=== PATIENT | male | born 1965 | race Caucasian/White ===

== ENCOUNTER 2019-07-03 14:55 | Inpatient (IN) ==
[2019-07-03] MEDS ORDERED: TYLENOL PO PRN (16:29)
[2019-07-03] MEDS ORDERED: NS 500 ML IV ONE (16:35)
[2019-07-03] MEDS ORDERED: BENADRYL PO ONE (16:35)
[2019-07-03] MEDS ORDERED: SODIUM CHLORIDE 0.9% INJ SCH (16:45)
[2019-07-03 17:54] LABS: RETIC% 1.55 % (0.8-2.1); RETIC-HE 15.1 PG (28.2-36.6)
[2019-07-03 18:19] LABS: IRON SATURATION 2 %; TIBC 402 ug/dL
[2019-07-03 18:20] LABS: TOTAL IRON 8 ug/dL (53-167); UNBOUND IRON 394 ug/dL (112-346)
--- NOTE | 2019-07-03 19:12 | Diag Imaging Result Doc PS360 ---
EXAM: CT ABD/PELVIS W/PO AND IV CON 07/03/2019 HISTORY: anemia/abd mass TECHNIQUE: This exam was performed using automated exposure control, adjustment of mA or kV according to patient size, and/or use of iterative reconstruction technique. COMMENT: There are no previous studies available for comparison. There are minimal platelike opacities present in the posterior costophrenic sulci. There are multiple low density lesions present in the liver. Spleen in the left hepatic lobe and the dome of the liver where there is a mass measuring 3.2 cm. The gallbladder is nondistended and there are no apparent stones. The aorta is not distended. The mesenteric and renal arteries are patent. The appendix is normal in appearance. The adrenal glands are not enlarged. The spleen is not enlarged. The pancreas is unremarkable. There is a mass in the transverse colon measuring 10.4 x 6.8 x 5.1 cm. There are enlarged mesenteric nodes. The mass one of which measures almost 15 mm in diameter. There are also prominent ileocolic nodes. Pelvis: There is diverticulosis in the sigmoid colon without evidence of diverticulitis. The urinary bladder is not distended. There is no evidence of free fluid. There is ankylosis of the sacroiliac joints. There is a hemangioma on the right side of the sacrum. There is ankylosis of multiple lumbar facet joints and the entire visible lumbar and thoracic spine. There is an apparent hemangioma in the T11 vertebral body on the right. 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 Electronically signed by Jt Campbell 07/03/2019 7:09 PM
[2019-07-03 19:46] LABS: HEMATOCRIT 25.6 % (42.0-52.0); HEMOGLOBIN 6.4 g/dL (14.0-18.0)
[2019-07-03] MEDS: PROTONIX IV SCH (20:10)
--- NOTE | 2019-07-03 20:21 | HISTORY AND PHYSICAL ---
CHIEF COMPLAINT: Abdominal pain. HISTORY OF PRESENT ILLNESS: The patient is a 53-year-old white male followed in my medical practice and also followed by Dr. Kan Vega. He comes in with left periumbilical abdominal pain after he ate barbecue. This began 5 days ago, and he has improved since that time. This seems to be peristaltic in nature as it comes and goes with meals. He has had occasional nausea and very rare vomiting over the past few weeks and notes fatigue over the past 3 to 4 weeks. He denies melena, hematochezia. Has daily regular bowel movements. No diarrhea. Last colonoscopy reviewed from February [address] Vega revealing some mild intestinal ulcerations, which were biopsied and were negative. He also had diverticulosis. No other abnormalities. Patient also was seen in [address] Vega's staff and note made that they were planning EGD at that time due to dysphagia and dyspepsia. It is unclear if he had that particular procedure at that time. MEDICATIONS: His medications prior to admission are none. ALLERGIES: Penicillin. PAST MEDICAL HISTORY: 1. Ankylosing spondylitis followed in the recent past by Dr. Guillen. He is now currently off medications. He was home sulfasalazine per Dr. Guillen in the past. 2. Rheumatoid arthritis, followed by Dr. Guillen. 3. Diverticulosis diagnosed 2015. 4. Sleep apnea. PAST SURGICAL HISTORY: 1. [place] teeth removal. 2. Tonsillectomy in 2002. FAMILY HISTORY: Notable for diabetes mellitus in paternal grandfather, maternal grandfather, maternal grandmother, and mother. Unknown cancer is prominent in the family. No strokes or MIs in the family. Hypertension in his father. Mother has been diagnosed with lung cancer recently. SOCIAL HISTORY: Patient lives in [place]. He is single. Rare minimal local smoker remotely. No alcohol. He works at [employer] in [employer]. REVIEW OF SYSTEMS: Notable for mild weight loss of about 10 pounds in the past 1-1/2 years by chart record. Otherwise negative except as above. PHYSICAL EXAMINATION: VITAL SIGNS: Weight 245, height 6 feet 1 inch, blood pressure 128/62, pulse 94, BMI 31. GENERAL: Mildly obese white male in no acute distress. SKIN: Warm and dry. No rashes. HEENT: NC/AT. MARYA. EOMI. Sclerae anicteric. No redness. Tongue in the midline. NECK: There is prominent neck stiffness with forward protrusion of the neck. CARDIOVASCULAR: RRR without murmur. LUNGS: CTA. ABDOMEN: Protuberant. We were able to relax his muscles of the abdomen by doubling up a pillow and put it under his neck, which is quite stiff, and he has a rigid spine noted as well. Abdomen exam reveals possible palpable mass of left periumbilical area. No organomegaly. No rebound or guarding. GENITOURINARY/RECTAL: Deferred. EXTREMITIES: No calf tenderness, cords or edema. NEUROLOGIC: Cranial nerves 2-12 are intact. No focal deficits. LAB DATA: Was obtained and shows sodium 136, potassium 4, chloride 101, CO2 of 24, BUN 15, creatinine 1, glucose 91, calcium 9.2, total bilirubin 0.27, total protein 6.5, albumin 3.7, alkaline phosphatase 30, SGOT 22, SGPT 10, amylase 37, lipase 68. White count 9.36, hemoglobin 6.4, hematocrit 25.8, MCV 59, platelets 1065, neutrophils 71.8, lymphocytes 13.6. KUB reveals nonobstructive bowel gas pattern. No free air. No significant constipation. No acute disease. ASSESSMENT: 1. Profound anemia, microcytic, rule out gastrointestinal blood loss anemia. 2. Palpable left abdominal mass. 3. Ankylosing spondylitis. 4. Rheumatoid arthritis. 5. History of diverticulosis. 6. Obstructive sleep apnea. PLAN: We will admit the patient to the hospital to step-down unit on telemetry. We will type and crossmatch 2 units and transfuse 2 units over 4 hours each unit. Premedicate and will get CT abdomen and pelvis with oral and IV contrast. Check iron studies, B12, folic acid level, LDH, haptoglobin, start him on IV Protonix, give him normal saline while keeping him on clear liquid diet currently with n.p.o. after midnight. cc: Skip Zuniga MD
[2019-07-03] MEDS: D5 1/2 NS + KCL 20 MEQ 1,000 ML IV SCH (23:43)
[2019-07-04 08:01] LABS: AGAP 12; BUN 11 mg/dL (8-22); CALCIUM 8.6 mg/dL (8.8-10.2); CHLORIDE 102 mmol/L (98-107); COSMO 270; ESTIMATED GFR > 60; GLUCOSE 106 mg/dL (70-104); POTASSIUM 4.2 mmol/L (3.5-5.1); SODIUM 135 mmol/L (136-145); TCO2 21 mmol/L (25-35)
[2019-07-04 08:47] LABS: BASO# 0.04 X1000 (0.0-0.2); BASO% 0.5 % (0.0-0.8); EOS# 0.25 X1000 (0.0-0.7); EOS% 3.1 % (0.0-10.0); HEMATOCRIT 28.6 % (42.0-52.0); HEMOGLOBIN 7.9 g/dL (14.0-18.0); IMM GRAN# 0.03 X1000 (0.0-0.04); IMM GRAN% 0.4 % (0.0-0.5); LYMPH# 1.05 X1000 (1.2-3.4); LYMPH% 13.1 % (20.5-51.1); MCH 17.7 PG (27-31); MCHC 27.6 g/dL (33-37); MCV 64.1 FL (81-99); MONO% 8.8 % (1.7-9.3); NEUT# 5.92 X1000 (1.4-6.5); NEUT% 74.1 % (42.2-75.2); PLT 846 X1000 (130-400); RBC 4.46 XMIL (4.7-6.1); RDW 23.8 % (11.5-14.5); WBC 7.99 X1000 (4.8-10.8)
[2019-07-04 10:45] LABS: LYMPHS 18 % (21-51); MONO 2 % (1-9); SEGS 80 % (42-75)
[2019-07-04 10:46] LABS: ANISOCYTOSIS 2+; HYPOCHROM 2+; LARGE PLATELETS 1+; MICROCYTOSIS 3+; POIKILOCYTOSIS 1+
[2019-07-04] MEDS: D5 1/2 NS + KCL 20 MEQ 1,000 ML IV SCH (13:17)
[2019-07-04] MEDS ORDERED: INJECTAFER 750 MG in NS 250 ML IV ONE (13:21)
[2019-07-04] MEDS ORDERED: BENADRYL IV ONE (13:22)
[2019-07-04] MEDS ORDERED: GOLYTELY PO ONE (14:00)
--- NOTE | 2019-07-04 14:13 | PROGRESS NOTE ---
DATE: 07/04/2019 SUBJECTIVE: The patient is stable. No new complaints. OBJECTIVE: Afebrile. Pulse 82, respirations 18, blood pressure 131/72, and O2 saturation on room air 97%.CV: RRR without murmur. Lungs: CTA. Prominent bamboo spine noted. Abdomen: Protuberant, soft. Palpable mass left periumbilical. Extremities: No edema, calf tenderness or cords. Neurologic: Cranial nerves are intact. No focal deficits. LABORATORY DATA: White count of 7.99, hemoglobin 7.9 after 2 units of PRBC's transfused last night. Hemoglobin was initially 6.4, platelets 846,000, down from 1000 earlier. Sodium 135, potassium 4.2, chloride 102, CO2 21, BUN 11, creatinine 1.0, glucose 106, and calcium 8.[address] abdomen and pelvis with oral and IV contrast done last evening which reveals likely transverse colon carcinoma with local mesenteric adenopathy and hepatic metastases. ASSESSMENT: 1. 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 2. Ankylosing spondylitis followed by Dr. Guillen. 3. Rheumatoid arthritis followed by Dr. Guillen 4. Diverticulosis. 5. Obstructive sleep apnea. PLAN: I spoke with Dr. Hart regarding the case, and he will consult on the case. He recommends consulting Dr. Rivas for possible repeat colonoscopy or tissue biopsy diagnosis. cc: Skip Zuniga MD
[2019-07-04] MEDS: PROTONIX IV SCH (19:55)
[2019-07-04] MEDS: ZOFRAN IV PRN (19:56)
--- NOTE | 2019-07-04 21:18 | GASTROENTEROLOGY CONSULTATION ---
DATE: 07/04/2019 REASON FOR CONSULTATION: Abnormal CT scan showing possible colon cancer. HISTORY OF PRESENT ILLNESS: This is a 53-year-old male who has followed recently with Dr. Zuniga. The patient had complained of lower abdominal pain. He reports that symptoms have been ongoing for about 3 weeks. He had followed with Dr. Zuniga and a CT scan was done. He had a CT scan done on 07/03/2019 that showed the possibility of carcinoma of the transverse colon, with local mesenteric adenopathy and hepatic metastasis. Also noted diverticulosis in the sigmoid colon without evidence of diverticulitis. Also noting ankylosis of the sacroiliac joints and hemangioma on the right side of the sacrum; mass in the transverse colon measuring 10.4 x 6.8 x 5.1 cm, with enlarged mesenteric nodes; mass on one of the measurements about 15 mm in diameter. Also prominent ileocolic nodes. The patient was last seen in our office in 2016. At that time he was complaining of some dysphagia and upper GI symptoms and was recommended to have an EGD. He canceled that procedure at that time because he did not have a ride, and he did not follow up with us in the office afterwards. Previous colonoscopy was in February 2016. At that time findings showed colon ulcers in the terminal ileum and diverticulosis, with no evidence of colon polyps. Pathology on terminal ileum ulcer showed nonneoplastic small intestinal mucosa, with mild chronic inflammation with no dysplasia noted. The patient had been taking sulfasalazine for his rheumatoid arthritis, followed by Dr. Guillen. When the patient had followed up with us in the office in April 2017, he was currently off of sulfasalazine and continues to be off of that medication. The patient has reported some change in bowel habits over the last several weeks. He has noted more loose stools. He has denied blood in the stool or black stools. He has denied upper GI symptoms of dysphagia or reflux. He has had some recent nausea. He states he ate a barbecue sandwich last week that caused some abdominal pain and symptoms. He has had a decreased appetite over the last several weeks and reports losing about 10-15 pounds. PAST MEDICAL HISTORY: Rheumatoid arthritis, followed by Dr. Guillen; ankylosing spondylitis, also following with Dr. Guillen; he has been off of sulfasalazine; history of sleep apnea; history of terminal ileum colon ulcers and diverticulosis in 2016. PAST SURGICAL HISTORY: [place] teeth removal, tonsillectomy, and colonoscopy in February 2016 that showed colon ulcers in the terminal ileum and diverticulosis. ALLERGIES: Penicillin, causing anaphylaxis. HOME MEDICATIONS: None reported. SOCIAL HISTORY: He lives alone. He does not have children he works at [employer]. No reported alcohol use. He reports occasional tobacco use. FAMILY HISTORY: He reports father had a family history of prostate cancer. Diabetes in paternal grandfather, maternal grandfather, paternal grandmother and mother. Mother recently diagnosed with lung cancer. REVIEW OF SYSTEMS: Per history of present illness. PHYSICAL EXAMINATION: Vital signs: Temperature 98.6 degrees, pulse 83. Blood pressure 136/70. Generally the patient is awake and alert. No acute distress.HEENT: Normocephalic, atraumatic. Pupils equal, round and reactive to light. Lung sounds essentially clear. Cardiovascular: Regular rate and rhythm. Abdomen with some distention noted, some tenderness. Lower extremities with no lower extremity edema noted. Neurological: Cranial nerves 2-12 grossly intact. LABORATORY DATA: Hematology: WBC 7.99, hemoglobin 7.9, hematocrit 28.6, MCV 64.1, platelets 846,000. Chemistry: Sodium 135, potassium 4.2, chloride 102, CO2 is 21, BUN 11, creatinine 1.0, glucose 106, calcium 8.6. Iron 8, TIBC 4, O2 percent saturation 2, ferritin 5. LDH 137. Vitamin B12 is 545, folate 9.0. DIAGNOSTIC DATA: CT scan of the abdomen and pelvis showing possible carcinoma of the transverse colon with local mesenteric adenopathy and hepatic metastasis. ASSESSMENT: 1. Abdominal pain. 2. Anemia. 3. Abdominal mass and CT scan showing possible carcinoma of the transverse colon, with mesenteric adenopathy and hepatic metastasis. 4. History of ankylosing spondylosis. 5. Rheumatoid arthritis. 6. History of sleep apnea. 7. History of diverticulosis. PLAN: We will place the patient on a clear liquid diet today. He will get colon prep and plan to proceed with EGD and colonoscopy on Wednesday. We have discussed the EGD and colonoscopy procedures along with benefits and risks with the patient. He wishes to proceed. Dr. Hart has been also consulted. Further plans will be made according to endoscopy procedures. I have discussed this case with Dr. Rivas. Thank you for this consultation. Dictated by KALYAN Rodriguez for Kan Rivas MD cc: KALYAN Barger MD Stephen W. Harbin, MD
--- NOTE | 2019-07-05 00:05 | HEMO/ONC CONSULTATION ---
DATE: 07/04/2019 REQUESTING PHYSICIAN: Dr. Zuniga REASON FOR CONSULTATION: Colonic mass. HISTORY OF PRESENT ILLNESS: Patient is a 53-year-old male who presented with abdominal pain. On examination, he was noted to have a large left upper quadrant mass. He reports occasional nausea. He denies blood per rectum or melena. Last colonoscopy was in February [address] Rivas, which was negative for malignancy. Patient underwent a CT scan, which revealed carcinoma involving the transverse colon with mesenteric lymphadenopathy and multiple low-density lesions within the liver. I have been asked to consult for further management. PAST MEDICAL HISTORY: 1. Ankylosing spondylitis. 2. Rheumatoid arthritis followed by Dr. Guillen. 3. Diverticulosis. 4. Sleep apnea. PAST SURGICAL HISTORY: Tonsillectomy. SOCIAL HISTORY: Patient lives in [place]. He is single. He has remote smoking history. He denies alcohol. He works at [employer] in [email or web address]. FAMILY HISTORY: Positive for diabetes and hypertension. Mother was diagnosed with lung cancer. REVIEW OF SYSTEMS: Positive for weight loss. All other review of systems are negative. PHYSICAL EXAMINATION: General: Patient is a well-developed male in no acute distress. Vital Signs: Temperature 98.3 degrees, pulse 90, blood pressure 141/75. Eyes: EOMI. PERRLA. Anicteric. Mucous membranes are moist. Neck: Supple without JVD or thyromegaly. Lymph node survey is negative. Cardiac: Regular rate and rhythm. Normal S1, S2. Chest: Clear to auscultation without rhonchi or wheezes. Abdomen: Soft, nontender, without hepatomegaly. Large mass is palpable in the left upper quadrant. Extremities: No cyanosis, clubbing, or edema. Neurological: Alert and oriented x3. No focal motor deficits. LABORATORY DATA: White count 7.9, hemoglobin 7.9, hematocrit 28, MCV 64, platelets 846. Retic count 1.5. BUN 11, creatinine 1.1. Ferritin 5, B12 is 545, folate 9. ASSESSMENT/PLAN: 1. Transverse colon mass with mesenteric lymphadenopathy and hepatic metastasis: I discussed these findings with the patient. I reviewed the CT scan with radiology. Unfortunately, he has metastatic disease. Discussed with Dr. Zuniga. Proceed with colonoscopy for tissue diagnosis. After colonoscopy, will decide on further management. 2. Iron-deficiency anemia: Proceed with IV iron today. Monitor for infection reactions. 3. Allergy prophylaxis: He will receive Benadryl premedication. Monitor for allergic reaction. 4. Folate deficiency: Start folic acid supplementation. 5. Deep venous thrombosis prophylaxis: Patient has been advised to get out of bed. Hold off Lovenox for now. Thank you for allowing me to participate in this patient's care. cc: MD Skip Mcdermott MD [facility]ITALNancy
[2019-07-05] MEDS: ZOFRAN IV PRN ×2 (01:08→07:38)
[2019-07-05] MEDS: D5 1/2 NS + KCL 20 MEQ 1,000 ML IV SCH ×2 (05:10→20:36)
[2019-07-05] MEDS: FOLIC ACID PO SCH (08:11)
[2019-07-05] MEDS ORDERED: FLEET ENEMA PR ONE (12:02)
[2019-07-05] MEDS ORDERED: DIPRIVAN 1% ONE (14:12)
[2019-07-05] MEDS ORDERED: XYLOCAINE-MPF 2% ONE (14:13)
[2019-07-05] MEDS ORDERED: FENTANYL ONE (14:14)
--- NOTE | 2019-07-05 14:49 | ENDOSCOPY OPERATIVE NOTE ---
[facility] ENDOSCOPY OPERATIVE NOTE , EGD PROCEDURE REPORT PATIENT: Gianni Pandey ADMISSION DATE: 07/05/2019 MR#: [id number] : 1965 PROCEDURE DATE: 07/05/2019 SURGEON: Kan Rivas MD STATUS: inpatient NURSE GYNECOLOGY: Mamta Zuleta and Bruce Price PREOPERATIVE DIAGNOSIS: The patient is a 53 yr old male here for an EGD due to abdominal pain and ab normal CT of the GI tract. PROCEDURE PERFORMED: EGD, diagnostic MEDICATIONS: Per Anesthesia TOPICAL ANESTHETIC: none CONSENT: The patient understands the risks and benefits of the procedure and understands that these r isks include, but are not limited to: sedation, allergic reaction, infection, perforation and/or bleeding. Alternative means of evaluation and treatment include, among others: physical exam, x-rays, and/or surgical intervention. The patient elects to proceed with this endoscopic procedure. HISORY AND PHYSICAL: 07/05/2019 DESCRIPTION OF PROCEDURE: During intra-op preparation period all mechanical and medical equipment was checked for proper function. Hand hygiene and appropriate measures for infection prevention was taken. After the risks, benefits and alternatives of the procedure were thoroughly explained, Informed consent was verified, confirmed and timeout was successfully executed by the treatment team. The patient was anesthetized with topical anesthesia and the [id number]-[id number] ([id number]) and TI95-f12A ([id number]) endoscope was introduced through the mouth and advanced to the seco nd portion of the duodenum. Retroflexion was performed in the stomach and revealed no abnormalities. The gastroscope was then slowly withdrawn and removed. ESOPHAGUS: The mucosa of the esophagus appeared normal. STOMACH: The mucosa of the stomach appeared normal. DUODENUM: A small diverticulum was found in the 2nd part of the duodenum. SPECIMENS REMOVED: No ADVERSE EVENTS: There were no complications. POSTOPERATIVE DIAGNOSIS: 1. The mucosa of the esophagus appeared normal 2. The mucosa of the stomach appeared normal 3. Diverticulum was found in the 2nd part of the duodenum RECOMMENDATIONS: Continue to colonoscopy procedure REPEAT EXAM: Kan Rivas MD eSigned: Kan Rivas MD 07/05/2019 2:49 PM cc: Skip Zuniga MD PATIENT NAME: Gianni Pandey MR#: [id number]
--- NOTE | 2019-07-05 14:55 | ENDOSCOPY OPERATIVE NOTE ---
[facility] ENDOSCOPY OPERATIVE NOTE , COLONOSCOPY PROCEDURE REPORT PATIENT NAME: Gianni Pandey ADMISSION DATE: 07/05/2019 MR #: [id number] BIRTHDATE: 1965 SURGEON: Kan Rivas MD PUBLIC TRANSIT SPECIALIST: Mamta Price PROCEDURE DATE: 07/05/2019 STATUS: inpatient INDICATIONS: The patient is a 53 yr old male here for a colonoscopy due to general abdominal pain an d an abnormal CT. PROCEDURE PERFORMED: Colonoscopy with biopsy MEDICATIONS: Per Anesthesia PREP TYPE: GoLytely
--- NOTE | 2019-07-05 20:17 | PROGRESS NOTE ---
DATE: 07/05/2019 SUBJECTIVE: Patient is stable, has been prepping for colonoscopy. Patient seen earlier this morning. OBJECTIVE: Afebrile. Vital signs stable.Cardiovascular: RRR. No murmur. Lungs: CTA. Abdomen: Protuberant. Active bowel sounds. Extremities: No calf tenderness, cords, or edema. Neurologic: Nonfocal. ASSESSMENT: 1. 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 2. Ankylosing spondylitis. Followed by Dr. Guillen. 3. Rheumatoid arthritis. Followed by Dr. Guillen. 4. Diverticulosis. 5. Obstructive sleep apnea. PLAN: Dr. Rivas has performed colonoscopy and taken a biopsy of the colonic mass found, and recommended Surgery evaluation. So, Dr. Henley was consulted in this regard as patient has near obstruction. I spoke also with Dr. Hart about this situation. cc: Skip Zuniga MD
[2019-07-05] MEDS: PROTONIX IV SCH (20:36)
[2019-07-05] MEDS: SODIUM CHLORIDE 0.9% INJ SCH (20:36)
[2019-07-06 09:27] LABS: BASO# 0.03 X1000 (0.0-0.2); BASO% 0.3 % (0.0-0.8); EOS# 0.41 X1000 (0.0-0.7); EOS% 3.5 % (0.0-10.0); HEMATOCRIT 31.8 % (42.0-52.0); HEMOGLOBIN 8.7 g/dL (14.0-18.0); IMM GRAN# 0.04 X1000 (0.0-0.04); IMM GRAN% 0.3 % (0.0-0.5); LYMPH# 1.21 X1000 (1.2-3.4); LYMPH% 10.2 % (20.5-51.1); MCH 17.2 PG (27-31); MCHC 27.4 g/dL (33-37); MONO# 0.66 X1000 (0.11-0.59); MONO% 5.6 % (1.7-9.3); MPV 8.6 FL (7.4-10.4); NEUT# 9.47 X1000 (1.4-6.5); NEUT% 80.1 % (42.2-75.2); PLT 936 X1000 (130-400); RBC 5.05 XMIL (4.7-6.1); RDW 24.6 % (11.5-14.5); WBC 11.82 X1000 (4.8-10.8)
[2019-07-06 09:31] LABS: INR 1.09; PROTIME 14.2 Seconds (11.0-16.0)
[2019-07-06] MEDS: D5 1/2 NS + KCL 20 MEQ 1,000 ML IV SCH (09:59)
[2019-07-06] MEDS: FOLIC ACID PO SCH (10:00)
[2019-07-06 10:01] LABS: AGAP 11; BUN 7 mg/dL (8-22); CALCIUM 8.7 mg/dL (8.8-10.2); CHLORIDE 101 mmol/L (98-107); COSMO 267; ESTIMATED GFR > 60; GLUCOSE 114 mg/dL (70-104); POTASSIUM 4.2 mmol/L (3.5-5.1); SODIUM 134 mmol/L (136-145); TCO2 22 mmol/L (25-35)
[2019-07-06] MEDS: NEOMYCIN PO SCH ×2 (13:49→21:22)
[2019-07-06] MEDS: ERYTHROMYCIN BASE PO SCH ×2 (13:50→21:22)
--- NOTE | 2019-07-06 14:59 | GENERAL SURGERY CONSULTATION ---
DATE: 07/06/2019 CHIEF COMPLAINT: Mid transverse colon cancer with near obstruction. HISTORY: I have been asked to see Mr. Pandey by Dr. Rivas and Dr. Zuniga. He is a pleasant, 53- year-old, white male for 3 weeks has been complaining about some crampy abdominal pain. Last Wednesday, he vomited after eating some soup and so he sought medical attention. He saw Dr. Zuniga in the office on Wednesday, and was prepared and scoped yesterday by Dr. Rivas. He found a transverse colon cancer since that was near obstructing. CT scan suggests adenopathy as well as liver metastasis. His CEA is 13. His last colonoscopy was in February of 2016 which showed only some ulcers in the terminal ilium and diverticulosis. No evidence of colon polyps at that time. He has a history of rheumatoid arthritis, followed by Dr. Guillne, and he takes sulfasalazine for that. He is currently off that medication. He has a history of sleep apnea as well. PAST SURGICAL HISTORY: Includes a tonsillectomy in 2002, wisdom teeth removal as well. MEDICATIONS AT HOME: None. ALLERGIES: Penicillin. SOCIAL HISTORY: He lives alone. He had has no children. He works at [employer]. Denies alcohol use. Denies illicit drug use. Occasionally uses tobacco. FAMILY HISTORY: Family history is pertinent for prostate cancer and mother with lung cancer. REVIEW OF SYSTEMS: Negative in every subsystem except as noted above. PHYSICAL EXAMINATION: Vital Signs: He is afebrile, heart rate 81, respiratory rate 16, blood pressure 131/81. There is no cervical adenopathy. Bilateral breath sounds are present. Heart was regular rate and rhythm. Abdomen: Soft. A mass in the upper quadrant just to the left of the midline is palpated. Extremities: Femoral pulses are present. No peripheral edema. He is awake and alert. LABORATORY DATA: Labs were reviewed. BUN is 11, creatinine 1.0. Hemoglobin is 7.9, hematocrit 28.6. PLAN: The plan will be a transverse colectomy to relieve his obstruction. This will not cure him because of his metastatic disease but will certainly maintain patency of his colon and allow him to have further systemic treatment. He will probably need blood transfusion due to his anemia. I have discussed the plan with him. We will put him back on clear liquids and given some p.o. antibiotics today, IV antibiotics tomorrow in preparation for his colectomy. cc: MD Skip Issa MD
--- NOTE | 2019-07-06 17:13 | HEMO/ONC PROGRESS NOTE ---
DATE: 07/06/2019 SUBJECTIVE: Patient was awake, sitting up in his bedside chair today. He states that he was feeling very well and denied any significant pain this morning. He has no complaints. He states that he has been feeling rather well all along. OBJECTIVE: Vital Signs: Temperature 98.6 degrees, pulse rate 89, respiratory rate 16, blood pressure 126/77, O2 saturation 100% on room air. He is in 0/10 pain. General: The patient is in no acute distress. HEENT: Sclera is anicteric. PERRLA. Oral mucosa is normal. Cardiovascular: Normal S1, S2. Heart rate and rhythm is regular. Respiratory: Chest is clear to auscultation. Normal respiratory effort. Abdomen: Soft, nontender, without hepatomegaly. Large mass palpable to the left upper quadrant. Extremities: No lower extremity edema noted. Neurological: Awake, alert, and oriented. No focal motor deficits noted. LABORATORY: WBCs 11.82, hemoglobin 8.7, hematocrit 31.8, platelet count 936,000. Haptoglobin was 306. Creatinine 1.0. ASSESSMENT AND PLAN: 1. Transverse colon mass with mesenteric lymphadenopathy and hepatic metastasis. The patient is going to surgery soon with Dr. Henley. Dr. Henley plans to do a transverse colectomy to remove his obstruction. We will peripherally follow up. 2. Iron deficiency anemia. The patient is status post 1 dose of IV iron. Transfusions as needed. 3. Folate deficiency. The patient has been started on folic acid supplementation per oral. 4. Deep vein thrombosis prophylaxis. The patient has been advised to get out of bed often. Hold off with Lovenox for now. Dictated by KALYAN Anaya for Kev Hart MD cc: MD Skip Mcdermott MD [facility]
[2019-07-06] MEDS: PROTONIX IV SCH (21:22)
[2019-07-06] MEDS: SODIUM CHLORIDE 0.9% INJ SCH (21:22)
--- NOTE | 2019-07-06 21:22 | PROGRESS NOTE ---
DATE: 07/06/2019 SUBJECTIVE: The patient is seen this morning. He was sitting up in a chair and tolerating some liquids. OBJECTIVE: Vital signs: Afebrile. Vital signs stable. CV: RRR. No murmur. Lungs: CTA. Neck: No bruits or TMG. Prominent ankylosing spondylitis with bamboo spine again noted. Abdomen: Active bowel sounds. Protuberant. Extremities: No calf tenderness, cords or edema. Neurologic: Cranial nerves are intact. He moves all extremities well. LAB DATA: This morning reveals white count of 11.8, hemoglobin 8.7, platelets 936,000. Sodium 134, potassium 4.2, chloride 101, CO2 22, BUN 7, creatinine 1.0, calcium 8.7. CEA 13. Folic acid level 9.0, iron 8. ASSESSMENT: 1. Transverse colon tumor likely colon carcinoma with metastasis to the mesenteric lymph nodes and liver with near obstruction. 2. Iron-deficiency and folic acid deficiency anemia. 3. Ankylosing spondylitis/rheumatoid arthritis. 4. Diverticulosis. 5. Obstructive sleep apnea. PLAN: The patient has begun repletion with folate per Dr. Hart and has received some iron supplementation after initially receiving 2 units packed red blood cells transfused. Dr. Henley has seen the patient and planned partial colectomy tomorrow. Continue to follow perioperatively. cc: Skip Zuniga MD
[2019-07-07] MEDS: ERYTHROMYCIN BASE PO SCH (04:43)
[2019-07-07] MEDS: NEOMYCIN PO SCH (04:44)
[2019-07-07] MEDS ORDERED: INVANZ 1 GM/NS 1 GM/50 ML IVPB IV ONE (09:14)
[2019-07-07] MEDS: FOLIC ACID PO SCH (09:28)
--- NOTE | 2019-07-07 09:29 | EKG Report ---
Test Performed on : 07/07/2019 09:13:26 AM Test Reason : pre op requirements Blood Pressure : / mmHG Vent. Rate : 076 BPM Atrial Rate : 076 BPM P-R Int : 152 ms QRS Dur : 088 ms QT Int : 390 ms P-R-T Axes : 058 035 057 degrees QTc Int : 438 ms Normal sinus rhythm. Normal ECG No previous ECGs available Unconfirmed Result
[2019-07-07] MEDS: D5 1/2 NS + KCL 20 MEQ 1,000 ML IV SCH (10:27)
--- NOTE | 2019-07-07 11:06 | PROGRESS NOTE ---
DATE: 07/07/2019 SUBJECTIVE: Patient is stable. He is prepped for the upcoming surgery this afternoon around noon. OBJECTIVE: Afebrile. Vital signs stable.CV: RRR. No murmur. Lungs: Clear. Abdomen: Protuberant. Bamboo spine chronic. Extremities: No calf tenderness, cords or edema. Neurologic: Cranial nerves 2-12 are intact. No focal deficits. LABORATORY DATA: Lab data from yesterday showed white count 11, hemoglobin 8.7, and platelets 936,000. Sodium 134, potassium 4.2, chloride 101, CO2 22, BUN 7, creatinine 1.0, and calcium 8.7. ASSESSMENT: 1. 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 Plans for partial colectomy later today per Dr. Henley. 2. Iron deficiency and folic acid deficiency anemia improved after 2 units PRBC's transfused and iron. IV given per Dr. Hart. 3. Ankylosing spondylitis/rheumatoid arthritis followed by Dr. Guillen. 4. Diverticulosis. 5. ELY. PLAN: We will follow the patient postoperatively. Reevaluation later today after the partial colectomy per Dr. Henley. cc: Skip Zuniga MD
--- NOTE | 2019-07-07 11:15 | HEMO/ONC PROGRESS NOTE ---
DATE: 07/07/2019 SUBJECTIVE: The patient is sitting up at bedside today. He continues to feel very well. He again has no complaints. OBJECTIVE: Vital Signs: Temperature 98.0 degrees, pulse rate 80, respiratory rate 17, blood pressure 121/70, O2 saturation 100% on room air. He is in 0/10 pain. General: On physical examination, patient is in no acute distress. HEENT: Sclerae is anicteric. PERRLA. Oral mucosa is normal. Cardiovascular: Normal S1, S2. Heart rate and rhythm is regular. Respiratory: Chest is clear to auscultation. Normal respiratory effort. Abdomen: Soft, nontender, without hepatomegaly. Large mass palpable to the left upper quadrant. Extremities: No lower extremity edema noted. Neurological: Awake, alert, and oriented. No focal motor deficits noted. LABORATORY: No labs drawn today. ASSESSMENT AND PLAN: 1. Transverse colon mass with mesenteric lymphadenopathy and hepatic metastasis. The patient is planning to undergo a transverse colectomy to remove his obstruction with Dr. Henley. I believe that might be occurring today. We are continuing to watch the patient's anemia very closely. 2. Iron deficiency anemia. The patient is status post 1 dose of intravenous iron. Transfuse as needed. We will also plan to give him a second dose in approximately a week if he is in the hospital, or outpatient if not. 3. Folate deficiency. The patient is started on oral folic acid supplementation. 4. Deep venous thrombosis prophylaxis. The patient has been advised to continue to move about the room and get up ad dorothea. Lovenox per surgery. Consider sequential compression devices while he is resting. Dictated by KALYAN Anaya for Kev Hart MD cc: MD Skip Mcdermott MD MTDD
[2019-07-07] MEDS ORDERED: SODIUM CHLORIDE 0.9% 10 ML ONE (12:13)
[2019-07-07] MEDS ORDERED: MARCAINE 0.25% ONE (12:13)
[2019-07-07] MEDS ORDERED: LEVAQUIN 500 MG/D5W 500 MG/100 ML IVPB ONE (12:14)
[2019-07-07] MEDS ORDERED: EXPAREL 1.3% ONE (12:14)
[2019-07-07] MEDS ORDERED: DIPRIVAN 1% ONE (12:18)
[2019-07-07] MEDS ORDERED: XYLOCAINE-MPF 2% ONE (12:19)
[2019-07-07] MEDS ORDERED: NORCURON ONE (12:21)
[2019-07-07] MEDS ORDERED: QUELICIN (DOSE) ONE (12:21)
[2019-07-07] MEDS ORDERED: STERILE WATER INJ. ONE (12:21)
[2019-07-07] MEDS ORDERED: SUFENTA ONE (12:23)
[2019-07-07] MEDS ORDERED: FLAGYL 500 MG/NS 500 MG/100 ML IVPB IV ONE (13:00)
[2019-07-07 13:37] LABS: URINE SOURCE CATH
[2019-07-07 13:41] LABS: BILIRUBIN URINE NEGATIVE (NEGATIVE); BLOOD URINE NEGATIVE (NEGATIVE); COLOR YELLOW; GLUCOSE URINE NEGATIVE (NEGATIVE); KETONE URINE NEGATIVE (NEGATIVE); LEUKOCYTES URINE NEGATIVE (NEGATIVE); NITRITE URINE NEGATIVE (NEGATIVE); PROTEIN URINE NEGATIVE (NEGATIVE); SP GRAVITY URINE 1.014; TURBIDITY URINE CLEAR (CLEAR); UROBILINOGEN URINE NORMAL (NORMAL)
[2019-07-07 13:42] LABS: UR EPITHELIAL CELLS <10 /HPF (<10); URINE BACTERIA NEGATIVE /HPF; URINE RBC <10 /HPF (<10); URINE WBC <10 /HPF (<10)
[2019-07-07] MEDS ORDERED: DECADRON ONE (14:06)
[2019-07-07] MEDS ORDERED: ZOFRAN ONE (14:06)
[2019-07-07] MEDS ORDERED: D5 1/2 NS + KCL 20 MEQ 1,000 ML IV SCH (14:57)
[2019-07-07] MEDS: OFIRMEV 1000 MG/ISOTONIC SOLN 1,000 MG/100 ML BOTTLE ONE ×2 (15:20→15:51)
[2019-07-07] MEDS: ZOFRAN IV PRN (16:08)
[2019-07-07] MEDS: DILAUDID IV PRN ×2 (16:08→20:40)
[2019-07-07] MEDS: FLAGYL 500 MG/NS 500 MG/100 ML IVPB IV SCH (18:36)
[2019-07-07] MEDS: LR 1,000 ML IV SCH (19:51)
--- NOTE | 2019-07-07 20:00 | OPERATIVE NOTE ---
PROCEDURE DATE: 07/07/2019 NAME OF PROCEDURE: 1. Exploratory laparotomy, mobilization of the splenic flexure. 2. Mobilization of hepatic flexure. 3. Transverse colectomy with primary reanastomosis. 4. Resection of loop of attached small bowel with primary reanastomosis. 5. Biopsy of the liver. SURGEON: Salvatore Henley MD. PIT SUPERVISOR: Demetris Garcia MD, who assisted in every aspect of the case, including the exploration, the resections, the anastomoses. 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 DESCRIPTION OF PROCEDURE: After satisfactory general endotracheal anesthesia was achieved, the upper midline incision was made through the subcutaneous tissue just around the umbilicus. We carried our incision through the midline fascia. We placed an upper hand retractor and retracted cephalad to the left. The large mass was identified. Inspection proved metastasis to be in the liver. Inspection proved the small bowel to be attached in 2 places. So, we then mobilized the splenic flexure with retraction laterally, bringing the splenic flexure up into the wound. We did the same for the hepatic flexure. We then identified an area proximal and distal to the grapefruit-size tumor, and cleaned off the colon there and used a OJE 80 blue cartridge to divide the colon in both places. We then divided the mesentery. The small bowel was attached on the inferior aspect of the caudal aspect of the colon, so we had to divide the small bowel in a similar fashion with the JOE 80 blue cartridges, proximal and distal to where the small bowel was attached to the tumor. There was a whole loop that was attached. After resecting the small bowel proximal and distal, we divided the mesentery of the small bowel using a large LigaSure. We then proceeded to divide the mesentery of the colon also using the LigaSure. This then allowed us to hand off the specimen. We then proceeded to clean off the ends of the colon and then constructed a 2-layer, end-to-end anastomosis using 3-0 silks in a Lembert fashion, the seromuscular layer posteriorly, then excising the staple lines on both sides, and then used a 3-0 Polysorb running locking stitch posteriorly, changed to a Karlos stitch anteriorly, and then the final layer was with 3-0 silks in a Lembert fashion anteriorly. This completed a 2-layer, end-to-end anastomosis. We then closed the mesentery of the colon with interrupted 3-0 silks. We then approximated the ends of the small bowel, placed a 3-0 silk to approximate the bowel [id number]. We cut off the corner of each limb of the small bowel and introduced a JOE 80 blue cartridge, and did a stapled [id number] anastomosis. The open end of the bowel was then approximated with Allis clamps and used a TA 60 to staple off the open ends of the small bowel. We then inverted the staple line with interrupted 3-0 silks in a Lembert fashion. We closed the mesentery with 3-0 silks. We then changed gloves at this point, added an additional 3-0 silk stitch at the opposite end of the staple line of the small bowel to take the tension off the staple line. So, we had wide open anastomosis not only between the colon, but also between the loops of small bowel. We then inspected the right upper quadrant and left upper quadrant. We irrigated the abdominal cavity. Hemostasis appeared satisfactory. There was a metastasis on the liver edge and we excised it as a liver biopsy. Hemostasis was satisfactory, achieved with electrocautery. Once again, we watched for bleeding and the tissue all appeared hemostatic. We then proceeded to close the peritoneum with 2-0 chromic. We closed the fascia with a running #2 Prolene. We irrigated the subcutaneous tissue and closed the skin with umm. A sterile island dressing was applied. He tolerated it well and was sent to the recovery room in satisfactory condition. cc: MD Skip Issa MD Khurshid Yousuf, MD MTDD
[2019-07-07] MEDS: LOVENOX SUBQ SCH (20:40)
[2019-07-07] MEDS: PERIDEX MT SCH (20:40)
[2019-07-07] MEDS: OFIRMEV 1000 MG/ISOTONIC SOLN 1,000 MG/100 ML BOTTLE IV SCH (20:40)
[2019-07-07] MEDS: PROTONIX IV SCH (20:41)
[2019-07-07] MEDS: SODIUM CHLORIDE 0.9% INJ SCH (20:41)
[2019-07-08] MEDS: FLAGYL 500 MG/NS 500 MG/100 ML IVPB IV SCH ×2 (00:49→05:53)
[2019-07-08] MEDS: DILAUDID IV PRN ×3 (03:13→18:54)
[2019-07-08] MEDS: OFIRMEV 1000 MG/ISOTONIC SOLN 1,000 MG/100 ML BOTTLE IV SCH ×4 (03:19→21:14)
[2019-07-08] MEDS: LR 1,000 ML IV SCH ×2 (05:53→18:54)
[2019-07-08 07:37] LABS: HEMATOCRIT 32.2 % (42.0-52.0); HEMOGLOBIN 9.2 g/dL (14.0-18.0); LYMPH# 0.43 X1000 (1.2-3.4); LYMPH% 2.5 % (20.5-51.1); MCH 19.5 PG (27-31); MCHC 28.6 g/dL (33-37); MCV 68.1 FL (81-99); MONO# 0.52 X1000 (0.11-0.59); MPV 8.9 FL (7.4-10.4); NEUT# 16.15 X1000 (1.4-6.5); NEUT% 94.5 % (42.2-75.2); PLT 704 X1000 (130-400); RBC 4.73 XMIL (4.7-6.1); RDW 28.8 % (11.5-14.5)
[2019-07-08 07:56] LABS: AGAP 13; BUN 8 mg/dL (8-22); CALCIUM 8.6 mg/dL (8.8-10.2); CHLORIDE 100 mmol/L (98-107); COSMO 270; CREATININE 0.9 mg/dL (0.7-1.2); ESTIMATED GFR > 60; GLUCOSE 127 mg/dL (70-104); POTASSIUM 4.8 mmol/L (3.5-5.1); SODIUM 135 mmol/L (136-145); TCO2 22 mmol/L (25-35)
--- NOTE | 2019-07-08 08:42 | GENERAL SURGERY PROGRESS NOTE ---
DATE: 07/08/2019 Mr. Pandey is postoperative day 1 after a transverse colectomy and resection of a portion of small bowel for a large cancer of the colon. This morning, he is doing generally well. His hemodynamics are good. Labs show a hemoglobin of 9.2, hematocrit 32. Chemistry is okay. I will allow him to have just a little bit of ice chips today but that is all in view of the 2 anastomoses in his gut. Dr. Harrell will cover the rest of the weekend. cc: MD Skip Issa MD
[2019-07-08] MEDS: FOLIC ACID PO SCH (10:15)
[2019-07-08] MEDS: PERIDEX MT SCH ×2 (10:15→21:14)
--- NOTE | 2019-07-08 11:33 | PROGRESS NOTE ---
DATE: 07/08/2019 SUBJECTIVE: The patient is stable. No pain that is not controlled. OBJECTIVE: Afebrile. Vital signs stable.CV: RRR. No murmur. Lungs: Clear. Abdomen: Hypoactive bowel sounds. Extremities: No calf tenderness, cords or edema. Neurologic: Cranial nerves are intact. He moves all extremities well. LABS: White count 17, hemoglobin 9.2, platelets 704,000. Pathology specimen from the colon mass per the colonoscopy done by Dr. Rivas reveals adenocarcinoma moderately differentiated. ASSESSMENT: 1. Postoperative day #1 status post partial colectomy related to adenocarcinoma of the colon with likely metastases to the mesenteric nodes and liver. 2. Iron deficiency and folic acid deficiency anemia, status post 4 units packed red blood cells transfusion, all since admission and 1 IV dose of iron per Dr. Hart. 3. Ankylosing spondylitis/rheumatoid arthritis. Followed outpatient by Dr. Guillen. 4. Diverticulosis. 5. Osteoarthritis. PLAN: Encourage incentive spirometry usage q.1 to 2 hours. Diet per Surgery. Continue to follow. cc: Skip Zuniga MD
[2019-07-08] MEDS: LOVENOX SUBQ SCH (21:14)
[2019-07-08] MEDS: SODIUM CHLORIDE 0.9% INJ SCH (21:14)
[2019-07-08] MEDS: PROTONIX IV SCH (21:14)
[2019-07-09] MEDS: LR 1,000 ML IV SCH ×3 (03:08→20:29)
[2019-07-09] MEDS: OFIRMEV 1000 MG/ISOTONIC SOLN 1,000 MG/100 ML BOTTLE IV SCH ×4 (03:09→20:30)
[2019-07-09] MEDS: FOLIC ACID PO SCH (08:24)
[2019-07-09] MEDS: PERIDEX MT SCH ×2 (08:24→20:30)
[2019-07-09] MEDS: DILAUDID IV PRN (08:25)
--- NOTE | 2019-07-09 14:22 | PROGRESS NOTE ---
DATE: 07/09/2019 SUBJECTIVE: Patient doing well no complaints. OBJECTIVE: Afebrile vital signs stable.CV: RRR. No murmur. Lungs: CTA. Extremities: No calf tenderness, cords or edema. Neurologic: Cranial nerves are intact. Nonfocal. I Os 2124 in, 3175 out. LABS SHOW: Sodium 135, potassium 4.8, chloride 100, CO2 22, BUN 8, creatinine 0.9, glucose 127, calcium 8.6. ASSESSMENT: 1. Postoperative day. 2. Status post partial colectomy and partial small-bowel resection due to adenocarcinoma of the colon with metastasis to the mesenteric nodes and liver. 3. Iron deficiency and folic acid deficiency anemia. 4. Ankylosing spondylitis/rheumatoid arthritis followed outpatient by Dr. Guillen. 5. Diverticulosis. 6. Osteoarthritis. PLAN: Continue care as per surgery. He is improving well. cc: Skip Zuniga MD
--- NOTE | 2019-07-09 15:18 | PROGRESS NOTE ---
DATE: 07/09/2019 Gianni Pandey is a 53-year-old white male, status post colon resection per Dr. Henley. His heart rate is 77, blood pressure 133/69, O2 saturation 98%, he is afebrile. His abdomen is mostly soft. The midline incision is dressed. The patient has been up. He appears to be comfortable. He has been n.p.o. Will start him on clear liquids. cc: MD Skip Jones MD
--- NOTE | 2019-07-09 15:44 | HEMO/ONC PROGRESS NOTE ---
DATE: 07/09/2019 HISTORY OF PRESENT ILLNESS: Patient is lying in bed. He seems comfortable. He underwent surgery two days ago. He seems to have tolerated this well. No significant complaints in terms of pain. PHYSICAL EXAMINATION: Vital signs: Temperature 98.2 degrees, pulse 77, blood pressure 133/69. Eyes are anicteric. Mucous membranes appear dry. Cardiac Exam: Regular rate and rhythm. Normal S1, S2. Chest: Clear to auscultation. Abdomen: Soft, nontender, without masses. Extremities: Without edema. LABORATORY DATA: White count 17.1, hemoglobin 9.2, platelets 704,000. ASSESSMENT/PLAN: 1. Stage IV colon cancer: Patient is status post resection. Continue postoperative care. We will plan to see him back after discharge for palliative chemotherapy. Questions were addressed today. 2. Iron deficiency anemia: He has received one dose of intravenous iron. Next week we will plan for another dose. Hemoglobin is trending up. 3. Deep venous thrombosis prophylaxis: He is on Lovenox subcutaneously daily. 4. History of ankylosing spondylitis/rheumatoid arthritis. cc: MD Skip Mcdermott MD
[2019-07-09] MEDS: LOVENOX SUBQ SCH (20:30)
[2019-07-09] MEDS: SODIUM CHLORIDE 0.9% INJ SCH (20:30)
[2019-07-09] MEDS: PROTONIX IV SCH (20:30)
[2019-07-10] MEDS: OFIRMEV 1000 MG/ISOTONIC SOLN 1,000 MG/100 ML BOTTLE IV SCH ×4 (02:04→21:13)
--- NOTE | 2019-07-10 09:43 | PROGRESS NOTE ---
DATE: 07/10/2019 SUBJECTIVE: Patient continues to slowly improve. No complaints. OBJECTIVE: Vital Signs: Afebrile, pulse 84, respirations 19, blood pressure 148/87, O2 saturation on room air 98%. CV: RRR. No murmur. Lungs: CTA. Positive BM x1 last night and he is passing flatus. Abdomen: Mild protuberance. Active bowel sounds. Extremities: No calf tenderness, cords or edema. Neurologic: Cranial nerves are intact. No focal deficits. LABS: No labs for today. ASSESSMENT: 1. Postoperative day #3 status post partial colectomy and removal of small area of small bowel. The patient with metastasis of adenocarcinoma of the colon to mesenteric nodes and liver. 2. Iron deficiency and folic acid deficiency. 3. Anemia, stable after 4 units packed red blood cells transfused. 4. Ankylosing spondylitis. 5. Rheumatoid arthritis. 6. Diverticulosis. 7. Osteoarthritis. PLAN: Continue present care per Dr. Henley and surgical team. Continue incentive spirometry. Home health care has been arranged as he lives alone and his father is elderly and caring for the patient's ill mother. cc: Skip Zuniga MD
[2019-07-10] MEDS: FOLIC ACID PO SCH (10:12)
[2019-07-10] MEDS: PERIDEX MT SCH ×2 (10:12→21:12)
[2019-07-10] MEDS: LR 1,000 ML IV SCH (10:28)
--- NOTE | 2019-07-10 13:55 | GENERAL SURGERY PROGRESS NOTE ---
DATE: 07/10/2019 SUBJECTIVE: Mr. Pandey is now 3 days after his transverse colectomy and resecting the small bowel for obstructive transverse colon cancer. Over the weekend he has progressed satisfactorily. He has passed some flatus. He has tolerated clear liquids. He is afebrile heart rate 84. Blood pressure 148/87. Intake has been 2306 output 3375. He is passing his urine satisfactorily. He is afebrile but his white count was 17,000 on the that has not been checked since then. His wound looks fine. PLAN: The plan will be to decrease his IV fluids. We advanced to full liquids. I will switch him to p.o. proton pump inhibitor and if he continues to progress hopefully we can switch him to solid food tomorrow and have him home by middle of the week. I am pleased with his progress as is he. cc: MD Skip Issa MD
[2019-07-10] MEDS: LOVENOX SUBQ SCH (21:12)
[2019-07-11] MEDS: OFIRMEV 1000 MG/ISOTONIC SOLN 1,000 MG/100 ML BOTTLE IV SCH ×4 (03:51→20:42)
[2019-07-11] MEDS: PRILOSEC PO SCH ×2 (05:30→06:02)
[2019-07-11] MEDS: LR 1,000 ML IV SCH (05:31)
[2019-07-11] MEDS: FOLIC ACID PO SCH (09:14)
[2019-07-11] MEDS: PERIDEX MT SCH ×2 (09:14→20:42)
--- NOTE | 2019-07-11 13:04 | GENERAL SURGERY PROGRESS NOTE ---
DATE: 07/11/2019 SUBJECTIVE: Mr. Pandey continues to progress satisfactory. He is passing flatus. His bowels had moved. He is tolerating full liquids. OBJECTIVE: He remains afebrile, heart rate 79, blood pressure 140/80. His intake was 3024, output 1875. PLAN: To advance him to a regular diet. Hopefully, he will be ready for discharge by in the morning. Pathology remains pending. cc: MD Skip Issa MD
--- NOTE | 2019-07-11 17:04 | HEMO/ONC PROGRESS NOTE ---
DATE: 07/11/2019 SUBJECTIVE: The patient is sitting up on the side of his bed this morning, grooming himself. His father is at bedside helping him shave. The patient states that he feels very well. He denies any pain. He has continued to heal very well as expected since surgery. He states that he has not had a bowel movement yet. The patient is interested in going home soon. However, he has concerns that he does live alone. He wants to make sure that there is some sort of home health that can help him when needed. VITAL SIGNS: Temperature 98.1 degrees, pulse rate 78, respiratory rate 17, blood pressure 139/81, O2 saturation 98% on room air. He is in 0/10 pain. PHYSICAL EXAMINATION: General: The patient is in no acute distress. HEENT: Sclerae anicteric. PERRLA. Oral mucosa is normal. Cardiovascular: Normal S1, S2. Heart rate and rhythm is regular. Respiratory: Lungs are clear to auscultation. Normal respiratory effort. Abdomen: Soft, nontender. Extremities: Without edema. LABORATORY DATA: No labs were drawn today. ASSESSMENT AND PLAN: 1. Stage IV colon cancer. The patient is status post resection. He continues to heal very well. He is being followed by Dr. Henley. He will be advanced to a regular diet today. He states he has not had a bowel movement yet and that he believes walking and a regular diet will help. He understands that we will see him back in the office to discuss palliative chemotherapy. Pathology is pending from surgery. He is okay to discharge from our standpoint. 2. Iron deficiency anemia. We will continue to monitor on an outpatient basis. We will probably give him 1 more dose of IV iron in the clinic. 3. Deep venous thrombosis prophylaxis. He is currently on Lovenox. Continue medical management. 4. History of ankylosing spondylitis/rheumatoid arthritis. Aware. Dictated by KALYAN Anaya for Kev Hart MD cc: MD Skip Mcdermott MD
[2019-07-11] MEDS: ULTRAM PO PRN (19:22)
--- NOTE | 2019-07-11 20:26 | PROGRESS NOTE ---
DATE: 07/11/2019 SUBJECTIVE: The patient continues to slowly improve. He is ambulatory. He has home health care arranged. He had 2 bowel movements since this morning. OBJECTIVE: Afebrile. Vital signs stable.CV: RRR. No murmur. Lungs CTA. Abdomen: Active bowel sounds. Stiff spine, chronic. Extremities: No calf tenderness, cords or edema. Neurologic: Cranial nerves 2-12 are intact. No focal deficits. ASSESSMENT: 1. Postoperative day #4, status post partial colectomy with removal of small area of small bowel. Metastasis of adenocarcinoma of the colon to mesenteric nodes and liver. 2. Iron-deficiency and folic acid-deficiency anemia. 3. Anemia. 4. Ankylosing spondylitis/rheumatoid arthritis. 5. Diverticulosis. 6. Osteoarthritis. PLAN: The patient continues to improve. Home health care has been arranged. Diet has been increased to regular diet. Possible discharge in the morning, as per Dr. Henley's recommendation. cc: Skip Zuniga MD
[2019-07-11] MEDS: LOVENOX SUBQ SCH (20:42)
[2019-07-12] MEDS: OFIRMEV 1000 MG/ISOTONIC SOLN 1,000 MG/100 ML BOTTLE IV SCH ×4 (02:03→21:19)
[2019-07-12] MEDS: PRILOSEC PO SCH (06:31)
[2019-07-12] MEDS: LR 1,000 ML IV SCH (07:25)
[2019-07-12] MEDS: FOLIC ACID PO SCH (08:11)
[2019-07-12] MEDS: PERIDEX MT SCH ×2 (08:12→21:19)
[2019-07-12] MEDS: ULTRAM PO PRN ×2 (14:46→21:19)
--- NOTE | 2019-07-12 20:19 | GENERAL SURGERY PROGRESS NOTE ---
DATE: 07/12/2019 SUBJECTIVE/OBJECTIVE: He is now 5 days after his transverse colon resection and small bowel resection. He is tolerating solid food now. His hemodynamics are good. His bowels have moved. His bowel sounds are active. His wound is fine. ASSESSMENT/PLAN: I am certainly okay for him to go home in the next 24 hours. I have instructed him regarding avoidance of lifting. I do not care what he eats at home. He is return to see me in the office in a week for staple removal. His pathology remains pending. cc: MD Skip Issa MD
[2019-07-12] MEDS ORDERED: ZOLOFT PO SCH (21:00)
[2019-07-12] MEDS: LOVENOX SUBQ SCH (21:19)
--- NOTE | 2019-07-13 01:34 | PROGRESS NOTE ---
DATE: 07/12/2019 SUBJECTIVE: The patient is seen earlier in the day. He was asking to try to be maintained in the hospital 1 more day and then to start home health care tomorrow. His brother is going to somewhat assist in his care as is his father. The patient lives at home and his mother is dealing with lung cancer, so his father is busy taking care that. OBJECTIVE: Vital signs: Afebrile. Pulse 83, respirations 16, blood pressure 141/77, O2 saturation 96%. General: He is stooling. Tolerating 75% of his meals. Cardiovascular: RRR without murmur. Lungs: Clear. Abdomen: Active bowel sounds. Extremities: No calf tenderness, cords or edema. Neuro: Cranial nerves are intact. No focal deficits. ASSESSMENT: 1. Postoperative day #5 status post partial colectomy with removal of small portion of the small bowel. 2. The patient also noted to have metastatic adenocarcinoma to the liver. 3. Iron deficiency and folic acid deficiency anemia. 4. Ankylosing spondylitis/rheumatoid arthritis. 5. Diverticulosis. 6. Osteoarthritis. PLAN: Continue regular diet and ambulation with likely discharge tomorrow. Home health care has been arranged. cc: Skip Zuniga MD
[2019-07-13] MEDS: OFIRMEV 1000 MG/ISOTONIC SOLN 1,000 MG/100 ML BOTTLE IV SCH ×3 (03:13→08:00)
[2019-07-13] MEDS: PRILOSEC PO SCH (06:46)
[2019-07-13] MEDS: FOLIC ACID PO SCH ×2 (07:42→08:00)
[2019-07-13] MEDS: PERIDEX MT SCH ×2 (07:42→08:00)
[2019-07-13 11:23] VITALS: BP 140/74
[2019-07-13] MEDS: ULTRAM PO PRN (14:33)
--- NOTE | 2019-07-13 21:29 | GENERAL SURGERY PROGRESS NOTE ---
DATE: 07/13/2019 SUBJECTIVE/OBJECTIVE: Mr. Pandey is doing well. He is eating. His bowels have moved. His wound is fine. ASSESSMENT/PLAN: He is going home today. He will return to see me in the office next week for staple removal. He is to call Dr. Hart's office for followup as well. cc: MD Skip Issa MD
--- NOTE | 2019-07-14 04:26 | PROGRESS NOTE ---
DATE: 07/13/2019 SUBJECTIVE: The patient was seen earlier in the day. He was doing well, ready for discharge. Home health care has been arranged. OBJECTIVE: Vital Signs: Afebrile. Pulse 73, respirations 18, blood pressure 140/74, O2 saturation on room air 97%. CV: RRR without murmur. Lungs: Clear. Abdomen: Soft. Active bowel sounds. Wound healing well with umm in place vertically. Extremities: No calf tenderness, cords or edema. Neurologic: Cranial nerves II-XII are intact. Nonfocal. ASSESSMENT: 1. Postoperative day #6 status post partial colectomy with removal of a small portion of his small bowel as well due to adenocarcinoma of the colon. 2. Metastatic adenocarcinoma of the colon to the liver. 3. Iron deficiency and folic acid deficiency anemia. 4. Ankylosing spondylitis/rheumatoid arthritis. 5. Diverticulosis. 6. Osteoarthritis. 7. Depression. PLAN: The patient will be discharged home. Keep him on Ultram for pain as he is doing well in that regard. Also he will be on Zoloft. Folic acid 1 mg daily, Prilosec 20 mg daily. He will follow up with Dr. Henley in 3 to 4 days, and with Dr. Hart in 2 weeks, and with myself in 2 weeks. cc: Skip Zuniga MD
--- NOTE | 2019-08-07 09:06 | DISCHARGE SUMMARY ---
ADMISSION DATE: 07/03/2019 DISCHARGE DATE: 07/13/2019 DIAGNOSES: 1. Partial colectomy with removal of a small portion of the small-bowel secondary to adenocarcinoma of the colon. 2. Metastatic adenocarcinoma of the colon to the liver. 3. Iron deficiency and folic acid deficiency anemia. 4. Ankylosing spondylitis/rheumatoid arthritis. 5. Diverticulosis. 6. Osteoarthritis. 7. Depression. CONSULTANTS: 1. Dr. Rivas, Gastroenterology. 2. Dr. Kev Hart, Oncology. 3. Dr. Salvatore Henley, General Surgery. PROCEDURES: 1. CT scan of abdomen and pelvis done on 07/03/2019 with oral and IV contrast revealing diverticulosis in the sigmoid colon without evidence of diverticulitis. There is ankylosing of the sacroiliac joints, meningioma on the right side of the sacrum. Ankylosis of multiple lumbar facet joints in the entire visible lumbar and thoracic spine. Hemangioma in the T11 vertebral body on the right. Carcinoma of the transverse colon and local mesenteric lymphadenopathy and hepatic metastasis also noted. 2. EGD showing esophagus normal, stomach normal, diverticulum found in the 2nd part of the duodenum. 3. Colonoscopy revealing tumor/mass at the hepatic flexure. Multiple biopsies performed. No evidence of angioectasia/AVM. No evidence of ulcer. No evidence of polyp. 4. 07/07/2019, exploratory laparotomy with mobilization of the splenic flexure and hepatic flexure, transverse colectomy with primary reanastomosis and resection of a loop of attached small-bowel with primary reanastomosis and biopsy of the liver. REASON FOR ADMISSION AND HOSPITAL COURSE: The patient is a 53-year-old white male followed in my medical practice and also followed by Dr. Rivas, his aluminum can collector. The patient came in with left periumbilical abdominal pain after he ate barbecue, had begun 5 days prior to admission, seemed peristaltic in nature, as it came and went with meals. The patient had occasional nausea and vomiting and some fatigue noted for 3 to 4 weeks. Denied melena, hematochezia. Last colonoscopy had been performed in 02/[address] Rivas, which showed some mild intestinal ulcerations, which were biopsied and were negative at that time. The patient also had known diverticulosis from that colonoscopy. The patient was noted on exam in the office to have left periumbilical mass palpable, and he was admitted to the hospital and started on IV fluids, and due to profound microcytic anemia, he was transfused 2 units of PRBCs. A CT abdomen and pelvis was obtained with findings of probable metastatic transverse colon cancer. The patient was maintained on IV Protonix and Dr. Rivas was consulted as was Dr. Hart and Dr. Henley. Dr. Rivas repeated a colonoscopy and EGD with normal EGD findings and abnormal colonoscopy findings of that of a colonic tumor. Pathology was awaited and ultimately showed adenocarcinoma of the colon. Dr. Henley recommended surgery and the patient underwent partial colectomy with primary reanastomosis and small-bowel, small portion was removed with a primary reanastomosis of that as well. Liver biopsy was performed. The patient postoperatively showed no major complications and was able to be discharged home on 07/13/2019. DISCHARGE MEDICATIONS: 1. Zoloft, which have been added during the hospitalization due to some situational depression at 50 mg p.o. daily. 2. Folic acid 1 mg p.o. daily. 3. Prilosec 40 mg p.o. daily. 4. Ultram 50 mg p.o. q.6 hours p.r.n. pain. He will follow up with Dr. Hart within 4 to [address] Henley within 1 week and with myself as needed. cc: Skip Zuniga MD
== END 2019-07-13 14:47 | disposition home health service (06) | DRG 330 ==
LOC: DIRADM 14:55 → 2N 16:26 → 4N 07-06 13:26
PROVIDERS: ADMIT Family Medicine; ATTEND Family Medicine

== ENCOUNTER 2019-08-29 13:19 | Inpatient (IN) ==
[2019-08-29] MEDS ORDERED: PHENERGAN PO PRN (16:49)
[2019-08-29] MEDS ORDERED: REGLAN PO PRN (16:49)
[2019-08-29] MEDS ORDERED: MOTRIN PO PRN (16:52)
[2019-08-29] MEDS ORDERED: DECADRON IV ONE (17:00)
[2019-08-29] MEDS ORDERED: ZOFRAN IV ONE (17:00)
[2019-08-29] MEDS ORDERED: NS IV ONE ×2 (17:00→17:30)
[2019-08-29] MEDS ORDERED: LEUCOVORIN IV ONE (17:30)
[2019-08-29] MEDS ORDERED: ATROPINE IV ONE (17:30)
[2019-08-29] MEDS ORDERED: CAMPTOSAR IV ONE (17:30)
[2019-08-29] MEDS ORDERED: D5W IV ONE (17:30)
[2019-08-29] MEDS ORDERED: [UNRECOGNIZED DRUG - MIXTURE] IV ONE (20:00)
[2019-08-29] MEDS: ZINC SULFATE PO SCH (20:12)
[2019-08-29] MEDS: ZOLOFT PO SCH (20:12)
[2019-08-29] MEDS: TYLENOL PO PRN (20:12)
[2019-08-29] MEDS ORDERED: NS IV SCH (20:30)
[2019-08-29] MEDS ORDERED: [UNRECOGNIZED DRUG - OTHER] IV SCH (20:30)
[2019-08-30 08:36] LABS: INR 1.02; PROTIME 13.5 Seconds (11.0-16.0)
[2019-08-30] MEDS: VICON-C PO SCH (08:50)
[2019-08-30] MEDS: FOLIC ACID PO SCH (08:51)
[2019-08-30] MEDS: THERA M PLUS PO SCH (08:51)
[2019-08-30] MEDS: ZINC SULFATE PO SCH ×2 (08:51→21:30)
[2019-08-30] MEDS: TYLENOL PO PRN (11:47)
--- NOTE | 2019-08-30 17:32 | HISTORY AND PHYSICAL ---
08/29/2019 CHIEF COMPLAINT: The patient is in the hospital for round of chemotherapy for metastatic adenocarcinoma of the colon. HISTORY OF PRESENT ILLNESS: Mr. Pandey is a 53-year-old male who was recently diagnosed with metastatic adenocarcinoma of the colon to the liver in June. The patient was hospitalized for abdominal pain. After consultation with EGD and colonoscopy by GI the patient was found to have abnormal colonoscopy findings of a colonic tumor. Pathology revealed adenocarcinoma. The patient underwent a partial colectomy with primary anastomosis and small bowel and small portion was removed with primary anastomoses of that as well. Liver biopsy was performed. The patient had no major complication. The patient followed up in the office and we are now beginning chemotherapy with FOLFIRI. The patient will have his 1st round of 5-FU and irinotecan today. The patient has had explained to him all the side effects and complications. He verbalizes understanding. All of his questions have been answered. PAST MEDICAL HISTORY: 1. Ankylosing spondylitis, followed by Dr. Guillen. 2. Rheumatoid arthritis followed by Dr. Guillen. 3. Diverticulosis diagnosed in 2015. 4. Sleep apnea. 5. Depression. 6. Iron deficiency and folic acid deficiency anemia. PAST SURGICAL HISTORY: 1. [place] teeth removal. 2. Tonsillectomy in 2002. 3. Partial colectomy with removal of small portion of the small bowel secondary to adenocarcinoma of the colon. SOCIAL HISTORY: The patient smokes on occasion. No alcohol or illicit drug use. ALLERGIES: Penicillin. HOME MEDS: Folic acid, Reglan, multivitamin, Zofran, Phenergan, Zoloft, vitamin B complex, Coumadin, zinc sulfate. REVIEW OF SYSTEMS: Review of systems is negative. Vital Signs: Temperature 98.5 degrees, pulse rate 83, respiratory rate 16, blood pressure 127/64, O2 saturation 96% on room air. He is in 0/10 pain. General: The patient is in no acute distress. He is obese with a BMI of 31.1. HEENT: Sclerae is anicteric. PERRLA. Oral mucosa is normal. Cardiovascular: Normal S1, S2. Heart rate and rhythm regular. No murmur noted. Respiratory: Lung sounds are clear to auscultation. Normal respiratory effort. Abdomen: Protuberant, soft, nontender. Bowel sounds present. Extremities: No lower extremity edema noted. Neurological: Awake, alert, oriented x3. Follows commands. No focal motor deficits noted. LABORATORY: PT 13.5, INR 1.02. ASSESSMENT AND PLAN: 1. Metastatic adenocarcinoma of the colon to the liver. The patient will begin his first cycle of 5-FU and irinotecan today. He will continue dosing every 2 weeks. Side effects and complications have been discussed with the patient. He will be continually monitored during his infusions. 2. Nausea prophylaxis. The patient will be premedicated with Zofran prior to his infusions for any nausea. He has also has p.r.n. Reglan, Phenergan and Zofran for at home use. 3. Allergy prophylaxis. The patient received Decadron prior to his infusion will be monitored during his infusion for any infusional reactions or side effects. 4. Diarrhea prophylaxis. The patient will receive a small dose of atropine prior to his infusions to help with any potential diarrhea caused by his chemotherapy. DISPOSITION: The patient will be in for a 3 day infusion. He will be discharged most likely on if he has no reactions. Dictated by KALYAN Anaya for Kev Hart MD cc: Kev Hart MD [facility]
[2019-08-30] MEDS ORDERED: ZOFRAN 16 MG in NS 100 ML IV ONE (18:30)
[2019-08-30] MEDS ORDERED: [UNRECOGNIZED DRUG - OTHER] IV SCH (19:00)
[2019-08-30] MEDS ORDERED: NS IV SCH (19:00)
[2019-08-30] MEDS ORDERED: [UNRECOGNIZED DRUG - MIXTURE] IV ONE (19:00)
[2019-08-30] MEDS: COUMADIN PO SCH (21:30)
[2019-08-30] MEDS: ZOLOFT PO SCH (21:30)
[2019-08-31 07:29] LABS: BASO# 0.02 X1000 (0.0-0.2); BASO% 0.1 % (0.0-0.8); EOS# 0.01 X1000 (0.0-0.7); EOS% 0.1 % (0.0-10.0); HEMATOCRIT 43.8 % (42.0-52.0); HEMOGLOBIN 13.8 g/dL (14.0-18.0); IMM GRAN# 0.05 X1000 (0.0-0.04); IMM GRAN% 0.3 % (0.0-0.5); LYMPH# 1.41 X1000 (1.2-3.4); LYMPH% 9.7 % (20.5-51.1); MCH 25.8 PG (27-31); MCHC 31.5 g/dL (33-37); MONO# 0.75 X1000 (0.11-0.59); MONO% 5.2 % (1.7-9.3); MPV 9.8 FL (7.4-10.4); NEUT# 12.27 X1000 (1.4-6.5); NEUT% 84.6 % (42.2-75.2); PLT 339 X1000 (130-400); RBC 5.34 XMIL (4.7-6.1); RDW 22.1 % (11.5-14.5); WBC 14.51 X1000 (4.8-10.8)
[2019-08-31 07:45] LABS: AGAP 11; ALB/GLOB RATIO 1.3; ALBUMIN 3.8 g/dL (3.5-5.0); ALKALINE PHOSPHATASE 34 U/L (32-122); BUN 15 mg/dL (8-22); CALCIUM 9.4 mg/dL (8.8-10.2); CHLORIDE 102 mmol/L (98-107); COSMO 281; CREATININE 0.9 mg/dL (0.7-1.2); ESTIMATED GFR > 60; GLUCOSE 108 mg/dL (70-104); GOT 25 U/L (10-34); GPT 35 U/L (10-44); POTASSIUM 4.9 mmol/L (3.5-5.1); SODIUM 140 mmol/L (136-145); TCO2 27 mmol/L (25-35); TOTAL BILIRUBIN 0.25 mg/dL (0.20-1.00); TOTAL PROTEIN 6.8 g/dL (6.3-8.3)
[2019-08-31] MEDS: ZINC SULFATE PO SCH ×2 (10:03→20:30)
[2019-08-31] MEDS: FOLIC ACID PO SCH (10:03)
[2019-08-31] MEDS: VICON-C PO SCH (10:03)
[2019-08-31] MEDS: THERA M PLUS PO SCH (10:03)
--- NOTE | 2019-08-31 13:30 | HEMO/ONC PROGRESS NOTE ---
DATE: 08/31/2019 SUBJECTIVE: The patient is lying comfortable in bed this morning. He is continuing to receive his chemotherapy. He states according to the nursing staff, it will run until about 6 o'clock tonight. The patient states he is comfortable. He is not having any reactions or side effects. He is able to get up and down at will. He denies any pain. He had a good night's sleep. The patient requests that due to how late his chemo will go this evening that he would prefer to be discharged in the morning. OBJECTIVE: Vital Signs: Temperature 97.8 degrees, pulse rate 68, respiratory rate 21, blood pressure 132/73, O2 saturation 99% on room air. He is in 0/10 pain. PHYSICAL EXAMINATION: General: The patient is in no acute distress. HEENT: Sclerae is anicteric. PERRLA. Oral mucosa is normal. Cardiovascular: Normal S1, S2. Heart rate and rhythm is regular. Respiratory: Lung sounds are clear to auscultation. Normal respiratory effort. Abdomen: Protuberant, soft, nontender, nondistended. Bowel sounds are present. Extremities: No lower extremity edema noted. Neurological: Awake, alert, oriented x3. No focal deficits noted. LABORATORY: WBC is 14.51, hemoglobin 13.8, hematocrit 43.8, platelet count 339,000, ANC 12.27. Sodium 140, potassium 4.9, creatinine 0.9. CEA is 21.7. ASSESSMENT AND PLAN: 1. Metastatic adenocarcinoma of the colon to the liver. The patient will continue chemotherapy today with 5-FU and irinotecan. He will continue dosing every 2 weeks. The patient has denied any side effects or complications so far. He states he is comfortable. He will could be continually monitored while he is having his infusions. He states his infusion should last until approximately 6 p.m. tonight. I will discharge him tomorrow morning. 2. Nausea prophylaxis. The patient is being premedicated with Zofran prior to his infusions for any nausea. The patient also has Reglan, Phenergan and Zofran at home if needed. 3. Allergy prophylaxis. The patient received Decadron prior to his infusions. He will also be monitored during his infusions for any infusional reactions or side effects. 4. Diarrhea prophylaxis. The patient was also given a small dose of atropine prior to his infusion to help with any potential diarrhea caused by chemotherapy. The patient denies this side effect so far. 5. Nutrition and exercise. The patient is encouraged to drink protein shakes while he is in the hospital with each male and get up often and perform his leg exercises that have been taught to him. 6. Deep venous thrombosis prophylaxis. Please allow the patient to get up and down. He has been encouraged to get up out of bed several times a day. The patient also is on Coumadin therapy. Dictated by KALYAN Aanya for Kev Hart MD cc: Kev Hart MD [facility]
[2019-08-31 14:17] LABS: LYMPHS 11 % (21-51); MONO 5 % (1-9); SEGS 84 % (42-75)
[2019-08-31 14:18] LABS: HYPOCHROM 1+
[2019-08-31] MEDS ORDERED: DULCOLAX PR ONE (19:32)
[2019-08-31] MEDS: COUMADIN PO SCH (20:30)
[2019-08-31] MEDS: ZOLOFT PO SCH (20:30)
[2019-09-01 07:26] VITALS: BP 130/74
[2019-09-01] MEDS: TYLENOL PO PRN (07:50)
[2019-09-01] MEDS: FOLIC ACID PO SCH (08:41)
[2019-09-01] MEDS: THERA M PLUS PO SCH (08:41)
[2019-09-01] MEDS: ZINC SULFATE PO SCH (08:41)
[2019-09-01] MEDS: VICON-C PO SCH (08:41)
--- NOTE | 2019-09-01 12:30 | DISCHARGE SUMMARY ---
ADMISSION DATE: 08/29/2019 DISCHARGE DATE: 09/01/2019 TREATMENT OVERVIEW: The patient was admitted for a 3 day treatment with FOLFIRI for metastatic adenocarcinoma of the colon to the liver. This is the patient's 1st cycle. He tolerated his chemotherapy very well. He states he was slightly nauseated this morning. Otherwise, he had no complications. We will continue his dosing every 2 weeks. The patient has had his port flushed and removed and will be discharged home today. DISCHARGE DISPOSITION: The patient knows his date to follow up for lab evaluation as well as when his next appointment is. The patient has nausea medications at home in case they are needed. He has instructions to guide him for nausea, vomiting, and diarrhea. The patient is stable for discharge. We will follow up with him on Wednesday. Dictated by KALYAN Anaya for Kev Hart MD [facility]
== END 2019-09-01 12:40 | disposition home health service (06) | DRG 847 ==
LOC: DIRADM 13:19 → 3N 14:22
PROVIDERS: ADMIT Internal Medicine Medical Oncology; ATTEND Internal Medicine Medical Oncology